=== PATIENT | male | born 1960 | race Caucasian/White ===

== ENCOUNTER 2017-10-28 05:43 | Day surgery (SDC) | payer BC ==
[2017-10-23 13:07] VITALS: BP 110/65
[~2017-10-28] VITALS: Ht 185.4 cm; Wt 91.2 kg
[~2017-10-28 05:43] MED LIST: DESV50TA20 PO; LACT1CAP35 PO; LEVO100T5 PO; LEVO112T4 PO; OMEP20TA62 PO; ZOLP12.54 PO
[2017-10-28] MEDS ORDERED: LACTATED RINGERS 1,000 ML IV SCH (06:10)
[2017-10-28 06:13] VITALS: BP 110/65
[2017-10-28] MEDS ORDERED: LIDOCAINE 1%, 2ML ONE (06:17)
[2017-10-28] MEDS ORDERED: LIDOCAINE 1%, 50ML ONE (06:23)
[2017-10-28] MEDS ORDERED: BUPIVACAINE/PF 0.5% ONE (06:23)
[2017-10-28] MEDS ORDERED: EPINEPHRINE 1 MG/ML, 1ML ONE (06:23)
[2017-10-28] MEDS ORDERED: LIDOCAINE 1%, 2ML SQ PRN (06:30)
[2017-10-28] MEDS ORDERED: FENTANYL PF 100 MCG/2ML ONE ×2 (06:34→07:48)
[2017-10-28] MEDS ORDERED: MIDAZOLAM 1 MG/ML, 2ML ONE (06:34)
[2017-10-28] MEDS ORDERED: ONDANSETRON 2MG/ML, 2ML ONE (06:38)
[2017-10-28] MEDS ORDERED: DEXAMETHASONE 4 MG/ML, 1ML ONE ×2 (06:38)
[2017-10-28] MEDS ORDERED: PROPOFOL 10 MG/ML, 20ML ONE (06:38)
[2017-10-28] MEDS ORDERED: BUPIVACAINE/PF-EPI 0.5% 1:200K INFIL ONE (06:58)
[2017-10-28] MEDS ORDERED: LIDOCAINE 1%-EPI 1:100K, 30ML INFIL ONE (06:59)
[2017-10-28] MEDS ORDERED: ACETAMINOPHEN 325 MG TABLET PO PRN (07:00)
[2017-10-28] MEDS ORDERED: OXYcodone 5 MG/5 ML ORAL.SOL UDC PO PRN (07:00)
[2017-10-28] MEDS ORDERED: ONDANSETRON 2MG/ML, 2ML IVPush PRN (07:00)
[2017-10-28] MEDS ORDERED: PROMETHAZINE 25 MG/ML, 1ML IV PRN (07:00)
[2017-10-28] MEDS ORDERED: FENTANYL PF 100 MCG/2ML IV PRN (07:00)
[2017-10-28] MEDS ORDERED: HYDROmorphone 1 MG/ML, 1ML IV PRN (07:00)
[2017-10-28] MEDS ORDERED: HYDROcodone/APAP 7.5-325MG/15ML UDC PO PRN (07:00)
[2017-10-28] MEDS ORDERED: HYDROcodone/APAP 7.5-325MG/15ML UDC ONE (07:48)
[2017-10-28] MEDS ORDERED: LACTOBACILLUS ACIDOPHILUS PO SCH (09:00)
[2017-10-28] MEDS ORDERED: TEMPLATE NON-FORMULARY MED. (Omeprazole Magnesium** (Prilosec Otc**) 20 MG) PO SCH (09:00)
[2017-10-28] MEDS ORDERED: LEVOTHYROXINE 100 MCG TABLET PO SCH (09:00)
[2017-10-28] MEDS ORDERED: DESVENLAFAXINE SUCCINATE 50 MG HOMEMEDPO SCH (09:00)
[2017-10-28] MEDS ORDERED: ZOLPIDEM TARTRATE 12.5 MG PO SCH (21:00)
[2017-10-29] MEDS ORDERED: LEVOTHYROXINE 112 MCG TABLET PO SCH (06:00)
== END 2017-10-28 09:45 ==
LOC: OUT 05:43
PROVIDERS: ATTEND Orthopaedic Surgery
DX: M23.222 Derangement of posterior horn of medial meniscus due to old tear or injury, left knee (principal); M23.242 Derangement of anterior horn of lateral meniscus due to old tear or injury, left knee; M17.12 Unilateral primary osteoarthritis, left knee; M94.262 Chondromalacia, left knee; M11.262 Other chondrocalcinosis, left knee; E03.9 Hypothyroidism, unspecified; Z88.0 Allergy status to penicillin
CPT/HCPCS: 29880; 29999; J0171; J1100; J2250; J2405; J2704; J3010; J3490; J7120